=== PATIENT | male | born 1980 | race Caucasian/White ===

== ENCOUNTER → 2021-04-16 10:26 | Outpatient (CLI) | payer OTHER, SELFPAY ==
--- NOTE | 2021-04-16 | DI.RAD.S_ITS ---
PROCEDURE: XR HAND RT 2V INDICATIONS: Stiffness of unspecified hand, not elsewhere classified TECHNIQUE: To views of the hand(s) acquired. COMPARISON: None. FINDINGS: Bones: Postsurgical changes compatible with ORIF of 4th proximal phalange fracture. Microplate and screws are in expected position in the 4th proximal phalange. Orthopedic hardware is intact. No acute fractures or dislocations. Carpal bones are normally aligned. No suspicious bony lesions. Soft tissues: No suspicious soft tissue calcifications. IMPRESSION: No acute fracture. No acute osseous lesion. If symptoms and/or clinical suspicion for pathology persists, further assessment with repeat radiographs (7-10 days) or advanced imaging (e.g. CT, MRI or bone scan) should be considered. Dictated by: Razia Beaulieu MD, PhD on 04/16/2021 at 11:49 Approved by: Razia Beaulieu MD, PhD on 04/16/2021 at 12:00
== END ==
PROVIDERS: Family Provider Family Medicine; PCP Family Medicine; Visit Provider Internal Medicine
DX: M25.641 Stiffness of right hand, not elsewhere classified (principal); M54.50 Low back pain, unspecified
CPT/HCPCS: 73120